=== PATIENT | male | born 2000 | race Caucasian/White ===

== ENCOUNTER → 2023-03-13 | Outpatient (CLI) | payer OTHER ==
[~2023-03-13] MED LIST: PERC5TAB12 PO
== END ==
LOC: M SOG 15:18
PROVIDERS: ATTEND Physician Assistant
DX: M25.531 Pain in right wrist (principal)

== ENCOUNTER 2023-05-09 07:47 | Day surgery (SDC) | payer OTHER ==
[~2023-05-09] VITALS: Ht 175.3 cm; Wt 78.7 kg
[2023-05-09] MEDS ORDERED: ACETAMINOPHEN 1000MG 100ML IV BAG As Ordered ONE (08:27)
[2023-05-09] MEDS ORDERED: ONDANSETRON 4MG 2ML VIAL As Ordered ONE (08:27)
[2023-05-09] MEDS ORDERED: propofoL 200 MG/20 ML VIAL As Ordered ONE (08:27)
[2023-05-09] MEDS ORDERED: LIDOCAINE 2% 100MG/5ML SDV (FOR ANES.) As Ordered ONE (08:27)
[2023-05-09] MEDS ORDERED: fentaNYL 100 MCG/2 ML INJECTION As Ordered ONE (08:27)
[2023-05-09] MEDS ORDERED: KETOROLAC 60MG 2ML VIAL As Ordered ONE (08:27)
[2023-05-09] MEDS: LR 1,000 ML IV SCH (08:49)
[2023-05-09] MEDS: MIDAZOLAM INJ 2MG/2ML VIAL IV PRN (08:56)
[2023-05-09] MEDS: fentaNYL 100 MCG/2 ML INJECTION IV PRN (08:56)
[2023-05-09] MEDS: LIDOCAINE 1% SDV 5ML VIAL PN ONE (08:57)
[2023-05-09] MEDS: ROPIvacaine 0.5% 30ML VIAL PN ONE (08:57)
[2023-05-09] MEDS: dexAMETHasone 10MG/1ML VIAL PRES.FREE PN ONE (08:57)
[2023-05-09] MEDS ORDERED: KETAMINE HCL 200MG/20ML VIAL As Ordered ONE (09:04)
[2023-05-09] MEDS ORDERED: GLYCOPYRROLATE INJ 0.2 MG/ML 2 ML VIAL As Ordered ONE (09:06)
[2023-05-09] MEDS: ceFAZolin SOD 2 GM in IV 1 EA IV ONE (09:45)
[2023-05-09] MEDS: LIDOCAINE W/EPINEPHRINE 1% 20ML VIAL As Ordered ONE (11:35)
[2023-05-09] MEDS: BACITRACIN OINTMENT 30GM TUBE As Ordered ONE (12:18)
[2023-05-09] MEDS ORDERED: oxyCODONE 5MG TAB PO PRN (12:35)
[2023-05-09] MEDS ORDERED: fentaNYL 100 MCG/2 ML INJECTION IV PRN (12:35)
[2023-05-09] MEDS ORDERED: MORPHINE 2 MG/ML 1ML VIAL IV PRN (12:35)
[2023-05-09] MEDS ORDERED: PERC5TAB12 PO (12:44)
[2023-05-09] MEDS: ONDANSETRON 4MG 2ML VIAL IV PRN (12:56)
[2023-05-09 13:25] VITALS: BP 123/71; TEMP 98.7; O2SAT 99
== END 2023-05-12 10:47 | disposition home or self-care (01) ==
LOC: M SDC 07:47
PROVIDERS: ATTEND Orthopaedic Surgery Hand Surgery
DX: S52.571P Other intraarticular fracture of lower end of right radius, subsequent encounter for closed fracture with malunion (principal)
CPT/HCPCS: 25405; 64418; 76000; C1713; J0131; J0665; J0690; J1100; J1885; J2250; J2405; J3010

== ENCOUNTER → 2023-05-16 | Outpatient (CLI) | payer OTHER | LOC: M SOG 14:38 | PROVIDERS: ATTEND Physician Assistant | DX: M25.531 Pain in right wrist (principal) ==

== ENCOUNTER → 2023-06-16 | Outpatient (CLI) | payer OTHER | LOC: M SOG 12:56 | PROVIDERS: ATTEND Physician Assistant | DX: M25.531 Pain in right wrist (principal); Z98.890 Other specified postprocedural states ==

== ENCOUNTER → 2023-07-17 | Outpatient (CLI) | payer OTHER | LOC: M SOG 07:55 | PROVIDERS: ATTEND Physician Assistant | DX: S52.501D Unspecified fracture of the lower end of right radius, subsequent encounter for closed fracture with routine healing (principal) ==

== ENCOUNTER → 2023-08-22 | Outpatient (CLI) | payer OTHER | LOC: M SOG 15:02 | PROVIDERS: ATTEND Physician Assistant | DX: S52.501D Unspecified fracture of the lower end of right radius, subsequent encounter for closed fracture with routine healing (principal) ==

== ENCOUNTER → 2023-10-23 | Outpatient (CLI) | payer OTHER | LOC: M SOG 08:02 | PROVIDERS: ATTEND Physician Assistant | DX: S52.501A Unspecified fracture of the lower end of right radius, initial encounter for closed fracture (principal); M25.631 Stiffness of right wrist, not elsewhere classified; Y93.9 Activity, unspecified; Y92.9 Unspecified place or not applicable ==

== ENCOUNTER → 2024-02-04 | Outpatient (CLI) | payer OTHER | LOC: M SOG 07:51 | PROVIDERS: ATTEND Physician Assistant | DX: S52.501D Unspecified fracture of the lower end of right radius, subsequent encounter for closed fracture with routine healing (principal); M25.631 Stiffness of right wrist, not elsewhere classified; Y93.9 Activity, unspecified; Y92.9 Unspecified place or not applicable ==